=== PATIENT | female | born 1985 | race Caucasian/White ===

== ENCOUNTER 2018-05-28 15:18 | Emergency (ER) | payer OTHER, MEDICAID, SELFPAY ==
[2018-05-28 15:19] VITALS: BP 134/79; PULSE 75; RESP 16; TEMP 36.6; O2SAT 97; BMI 35.4
[2018-05-28] MEDS: 0.9% Normal Saline 1,000 ML 1000 ML IV (15:54)
--- NOTE | 2018-05-28 16:01 | ED.DCSUM_ITS ---
- ER Visit Summary Date of Service: 05/28/18 Chief Complaint: Abdominal pain History of Present Illness: The patient is a 32 F with no primary care physician. She reports that she has right-sided abdominal pain that began 2 days ago. These are intermittent episodes lasting hours at a time. She describes as a dull, crampy pain is 5-10 at worst and she is pain-free currently. Is worsened by laying down. Is relieved by sitting up. Reports that if she pushes in her right upper quadrant it seems to cause pain in her right flank. Patient reports that she was nauseated and vomited once yesterday. No blood or emesis. No diarrhea. Her last bowel movement was yesterday. Patient denies any history of fatty food intolerance. She does report that tomato sauces have bothered her in the past. She denies any spicy food intolerance. States that yesterday at approximately 7 or 8 PM she ate a bagel with butter and cinnamon. She has pain that began approximately 9 PM. The night before that she ate Nepalese food approximately 9 PM. Pain began at 10 or 11 PM. She reports that she ate the same Nep[place]e food yesterday for lunch and did not develop any pain. No dysuria or frequency. Her last months. It was partly 2 weeks ago. No vaginal bleeding or discharge. She has never had anything like this before. Physical Examination: Vitals: Stable. Afebrile. General: Well-nourished and well-developed. Head: Normocephalic atraumatic. Neck: Supple, no lymphadenopathy. No JVD. Nontender. Cardiovascular: Regular rate and rhythm. No murmurs. Respiratory: No respiratory distress. Clear to auscultation bilaterally. Abdominal: Soft, nontender, nondistended, normal bowel sounds. No guarding, rebound, or peritoneal signs. No Flores sign. Back: Nontender. Extremities: Nontender, no edema. Skin: Normal color, no rash. Neurologic: Alert and oriented ?3. Cranial nerves II through XII are intact. Normal strength and sensation. Psych: Normal affect. Test Results: CBC is normal. Chem-7 is more for creatinine 1.3. LFTs marked total protein 8.3 globulin 4.7. Lipase is normal. UA shows leukocytes, 510 white blood cells, and rare bacteria. test is negative. Emergency Department Course and Treatment: Patient is resting comfortably. She refused pain or nausea medications. Patient was treated with Macrobid p.o. Treatment Plan: Patient will be discharged on Macrobid and Zantac. Instructed to follow-up with Dr. Gordillo in 3-5 days for another exam. Return to emergency department for worsening symptoms. Disposition: To home in improved and stable condition. Impression: 1. Right upper quadrant abdominal pain, acute. 2. UTI. This note was generated with [employer] ([employer] dictation software. It may contain incorrect words, spelling, and punctuation that were not noted in review of the chart prior to signing ED Disposition - Plan for ED Patient: Chief Complaint: Abd Pain Instructions: ED UTI Cystitis Female, ED Abdominal Pain Gallstone Poss Prescriptions: Nitrofurantoin Macrocrystals [Macrobid] 100 mg PO Q12 #14 capsule Ranitidine [Zantac] 300 mg PO DAILY #30 tablet Referrals: Geovani Gunderson MD [STAFF PHYSICIAN] - Kim Goodrich MD [STAFF PHYSICIAN] - 3-5 Days if not improving
[2018-05-28 16:04] LABS: Mucous, Urine 0 SEEN /hpf (<or=2+)
[2018-05-28 16:08] LABS: Color, Urine Yellow (Yellow); Glucose, Dipstick Normal (Normal); Ketone-Dipstick Negative (Negative); Leukocyte Esterase-Dipstick 500 /ul (Negative); Nitrite-Dipstick Negative (Negative); Occult Blood-Urine Negative /ul (Negative); Protein-Dipstick 30 mg/dl (Negative); Specific Gravity, Urine 1.015 (1.002-1.030); Urine Bilirubin Dipstick Negative (Negative); Urine Clarity Clear (Clear); Urine Urobilinogen Normal (Normal)
[2018-05-28 16:14] LABS: Bacteria RARE /hpf (None Seen); Red Blood Cells-Urine 0-5 SEEN /hpf (0-5); Squamous Epithelial Cells - UA 0-5 SEEN /hpf (5-10); White Blood Cells 5-10 SEEN /hpf (0-5)
[2018-05-28 16:17] LABS: AST(SGOT) 18 U/L (15-37); Absolute Lymphocyte Count 2.48 X10^3/ul (0.83-4.51); Absolute Neutrophil Count 5.6 X10^3/uL (2.0-7.7); Alanine Aminotransfer ALT/SGPT 28 U/L (13-56); Albumin, Serum 3.6 g/dL (3.2-5.0); Alkaline Phosphatase 96 U/L (45-117); Anion Gap 6 (5-15); BUN 13 mg/dL (7-18); Basophil# 0.06 X10^3/uL; Basophil% 0.7 % (0-1); Bilirubin, Direct 0.09 mg/dL (0.00-0.30); Chloride 104 mmol/L (98-107); EST Glomerular Filtration Rate 51 mL/min (>60); Eosinophil# 0.22 X10^3/uL; Eosinophils% 2.4 % (0-5); Est Glom Filt Rate - Afr Amer 62 mL/min (>60); Estimated Creatinine Clearance 50.05 ml/min; Globulin 4.7 g/dL (2.2-4.2); Glucose 96 mg/dL (74-106); Hematocrit 44.3 % (37-47); Hemoglobin 14.4 g/dl (12.0-15.0); Lipase 146 U/L (73-393); Lymphocyte # 2.48 X10^3/ul (4.0); Lymphocyte % 27.2 % (19-41); Mean Corp Hgb Conc 32.5 g/gl (32-36); Mean Corpuscular Hgb 27.4 pg (27.0-32.0); Mean Corpuscular Volume 84.2 fL (81-99); Mean Platelet Vol. 9.8 fl (6.2-12.0); Monocyte# 0.72 X10^3/uL; Monocyte% 7.9 % (0-10); Neutrophil # 5.64 X10^3/uL (2.7-7.7); Neutrophil % 61.7 % (47-70); POSITIVE COUNT NO; POSITIVE DIFFERENTIAL NO; POSITIVE MORPHOLOGY NO; Platelet Count 366 K/mm3 (150-450); Potassium 3.9 mmol/L (3.5-5.1); Protein, Total 8.3 g/dL (6.4-8.2); RBC Distribution Width CV 13.8 % (11.6-14.6); RBC Distribution Width SD 42.7 fl (35.1-43.9); Red Blood Count 5.26 M/mm3 (4.2-5.4); Sodium Level 140 mmol/L (136-145); White Blood Count 9.1 K/mm3 (4.4-11.0)
[2018-05-28 16:19] LABS: Pregnancy, Serum, hCG Quali. NEGATIVE Negative (0-9 Nonpreg)
[2018-05-28] MEDS: Nitrofurantoin Macrocrystals 100 MG Capsule PO (16:39)
[2018-05-28 16:45] VITALS: BP 110/65; PULSE 62; RESP 14; O2SAT 98
--- NOTE | 2018-05-28 16:46 | ED.RN ---
PT GIVEN WRITTEN AND VERBAL DISCHARGE INSTRUCTIONS AND HOME GOING PRESCRIPTIONS. PT VERBALIZES UNDERSTANDING AND DENIES ANY FURTHER QUESTIONS. IV D/C AND COVERED WITH 2X2 GAUZE DRESSING AND PAPER TAPE. PT DRESSES SELF AND AMBULATES OUT OF DEPT WITH .
== END 2018-05-28 16:52 | disposition home or self-care (01) ==
PROVIDERS: Emergency Provider Emergency Medicine
DX: N39.0 Urinary tract infection, site not specified (principal); R10.11 Right upper quadrant pain
CPT/HCPCS: 80048; 80076; 81001; 83690; 84703; 85025; 96360; 99284; J7030; A4216

== ENCOUNTER 2022-02-21 13:51 | Inpatient (IN) | payer OTHER, MEDICAID, SELFPAY ==
[2022-02-21 13:51] VITALS: BP 134/91; PULSE 73; RESP 16; TEMP 36.4; O2SAT 100; BMI 35.6
--- NOTE | 2022-02-21 14:06 | EDS_ITS ---
HPI HPI - GI History of Present Illness Chief Complaint: Abd Pain Detail of Chief Complaint: Abdominal pain that started this morning Informant: patient Abdominal Pain/Flank Pain Current Severity: 7/10 Nausea/Vomiting/Emesis GI Symptom: Positive for Nausea and Vomiting Narrative Narrative: Patient presents with abdominal pain that started this morning. She describes it as right upper quadrant and at times radiating through to her back. Patient's had nausea and vomiting x5. She denies any blood in her stool or black tarry stool. She denies any diarrhea. She denies any fever. Patient last ate last evening. She denies any urinary symptoms. Her last menstrual period was about a month ago but she only gets one about every quarter because she is on the NuvaRing. No history of gallbladder problems. Prior similar symptoms: No PFSH PFSH Medical History no medical history Home Medications NK 02/21/22 [History Last Taken Unknown] Allergy/AdvReac Type Severity Reaction Status Date / Time pineapple Allergy Angioedema Verified 02/21/22 13:53 Sulfa (Sulfonamide Allergy Rash Verified 02/21/22 13:53 Antibiotics) Social History Smoking Status: Never smoker ROS ROS ED Constitutional Constitutional ED: Reports systems reviewed and no addt'l complaints, except as documented; Denies body ache(s), change in weight or chills Eyes Eyes: Denies acute decrease in peripheral vision, change in vision, double vision or loss of vision ENT ENT ED: Reports none; Denies ear pain, lip swelling, loss taste/smell, neck pain, otalgia or sore throat Cardiovascular Cardiovascular: Reports none; Denies abdominal pain, chest pain with activity, leg edema, lightheadedness, palpitations, rapid heart rate or syncope Respiratory/Chest Respiratory/Chest: Reports none; Denies change in mental status, dry cough, dyspnea, hemoptysis, shortness of breath at rest or shortness of breath with exertion Gastrointestinal Gastrointestinal: Reports none, abdominal pain, nausea and vomiting; Denies change in stool character, diarrhea, hematemesis, hematochezia, melena or rectal bleeding Genitourinary Genitourinary ED: Reports none; Denies abdominal discomfort, anuria, dysuria, genital pain or polyuria Musculoskeletal Musculoskeletal: Reports none; Denies arthralgias, back pain, difficulty walking, extremity pain, muscle weakness or myalgias Integumentary Reports none; Denies abscess or rash Neurologic Neurologic: Reports none; Denies abnormal gait, confusion, focal weakness, frequent falls, headache(s), loss of vision, numbness, paresthesias, radicular pain, vertigo or weakness Psychiatric Psychiatric: Reports systems reviewed and no addt'l complaints, except as documented and none; Denies behavioral changes, confusion, difficulty concentrating, hallucinations, suicidal ideation, tactile hallucinations or visual hallucinations Endocrine Endocrinology: Denies none, cold intolerance, excessive sweating, fatigue or heat intolerance Hematologic/Lymphatic Hematologic/Lymphatic: Reports none; Denies anemia, easy bleeding or easy bruising Allergic/Immunologic Allergic/Immunologic ED: Denies as per HPI, none, lip swelling, mouth swelling, throat swelling, tongue swelling or hives EXAM Physical Exam Const Vital Signs: 02/21/22 13:51 Temperature 97.6 F L Temperature Source Temporal Pulse Rate 73 Respiratory Rate 16 Blood Pressure 134/91 H Blood Pressure Mean 105 Pulse Ox 100 Oxygen Delivery Method Room Air Positive well nourished and well developed General Appearance ED: well developed and NAD HEENT Reports TM's clear and moist mucous membranes normocephalic and atraumatic; Negative for trauma or tenderness Tympanic Membrane ED: Yes TM's clear Eyes PERRL and EOMs intact bilaterally General Eye ED: Negative for pale conjunctiva or scleral icterus Neck no lymphadenopathy, supple and no JVD General: Negative for tenderness Chest Wall inspection of chest normal and palpation of chest normal Chest: Negative for tenderness Resp normal respiratory effort and clear to auscultation bilaterally Effort and Inspection: Negative for respiratory distress or pain with movement Auscultation: Negative for rhonchi, wheezes or diminished lung sounds Cardio regular rate, regular rhythm, S1 normal heart sound, S2 normal heart sound and no murmurs Peripheral Pulses: pulses 2+ throughout GI normal to inspection, nondistended, normoactive bowel sounds, soft to palpation, non-distended and no masses GI Narrative: Patient has tenderness palpation of the right upper quadrant with guarding. She had a positive Flores sign. No rebound, rigidity, or peritoneal signs. Palpation: tender Back/Spine no CVA tenderness and no thoracic nor lumbar tenderness Extremity normal to inspection General Extremety ED: Negative for edema General Extremity: Negative for edema Neuro oriented x3, CN's II-XII intact bilaterally, no sensory deficits noted and gait normal Sensorium / Orientation: awake, alert, oriented to person, oriented to place and oriented to time Motor Exam: strength 5/5 throughout and strength abnormal Psych mental status grossly normal Skin no rashes or lesions noted and no wounds MDM MDM MDM Narrative Medical decision making narrative: IV line established on arrival. Patient was medicated with Dilaudid and Zofran. She was started on normal saline. Patient had good pain relief with that. She does have an elevated white blood cell count however her LFTs and lactate are normal. CT scan of the abdomen pelvis showed gallstones and HIDA scan was recommended if concern for cholecystitis. Given location of patient's pain and the fact that she still having pain and has been vomiting and elevated white count was concerned about cholecystitis. I discussed case with Dr. Ojeda who will present to the emergency department to evaluate patient. Patient will be admitted by surgeon for cholecystectomy to be performed tomorrow. Lab Data Attestation: I reviewed the patient's lab results. Labs: Laboratory Results - last 24 hr 02/21/22 02/21/22 02/21/22 14:21 14:21 14:21 WBC 13.8 H RBC 5.11 Hgb 13.7 Hct 42.3 MCV 82.8 MCH 26.8 L MCHC 32.4 RDW Std Deviation 40.8 RDW Coeff of [place] 13.5 Plt Count 496 H MPV 9.1 Immature Gran % (Auto) 0.200 Neut % (Auto) 85.9 H Lymph % (Auto) 10.6 L [place] % (Auto) 2.5 Eos % (Auto) 0.1 Baso % (Auto) 0.7 Absolute Neuts (auto) 11.9 H Absolute Lymphs (auto) 1.46 Nucleated RBC % 0 Sodium 139 Potassium 4.4 Chloride 109 H Carbon Dioxide 25.0 Anion Gap 5 BUN 14 Creatinine 1.14 H Estim Creat Clear Calc 55.00 Est GFR (MDRD) Af Amer 70 Est GFR (MDRD) Non-Af 58 L BUN/Creatinine Ratio 12.3 Glucose 100 Lactic Acid 1.3 Calcium 9.4 Total Bilirubin 0.20 AST 7 L ALT 14 Alkaline Phosphatase 105 Total Protein 8.4 H Albumin 3.3 Globulin 5.1 H Albumin/Globulin Ratio 0.6 L Lipase 81 Serum , Qual Urine Color Urine Clarity Urine pH Ur Specific [place] Urine Protein Urine Glucose (UA) Urine Ketones Urine Occult Blood Urine Nitrite Urine Bilirubin Urine Urobilinogen Ur Leukocyte Esterase Urine RBC Urine WBC Ur Squamous Epith Cells Urine Bacteria Urine Mucus 02/21/22 02/21/22 14:21 14:31 WBC RBC Hgb Hct MCV MCH MCHC RDW Std Deviation RDW Coeff of [place] Plt Count MPV Immature Gran % (Auto) Neut % (Auto) Lymph % (Auto) [place] % (Auto) Eos % (Auto) Baso % (Auto) Absolute Neuts (auto) Absolute Lymphs (auto) Nucleated RBC % Sodium Potassium Chloride Carbon Dioxide Anion Gap BUN Creatinine Estim Creat Clear Calc Est GFR (MDRD) Af Amer Est GFR (MDRD) Non-Af BUN/Creatinine Ratio Glucose Lactic Acid Calcium Total Bilirubin AST ALT Alkaline Phosphatase Total Protein Albumin Globulin Albumin/Globulin Ratio Lipase Serum , Qual NEGATIVE Urine Color Yellow Urine Clarity Sl. Cloudy Urine pH 5.[address] [place] 1.020 Urine Protein 30 H Urine Glucose (UA) Normal Urine Ketones Negative Urine Occult Blood 25 H Urine Nitrite Negative Urine Bilirubin Negative Urine Urobilinogen Normal Ur Leukocyte Esterase 500 H Urine RBC 0 SEEN Urine WBC 25-50 SEEN Ur Squamous Epith Cells 0-5 SEEN Urine Bacteria 0 SEEN Urine Mucus 0 SEEN Radiography Diagnostic Testing: Clinical Impression(s) from Imaging Studies Abdomen/Pelvis CT 02/21/22 15:00 IMPRESSION: Stones in the gallbladder, including the neck. HIDA scan may be obtained if clinical suspicion for acute cholecystitis is high. A 0.2 cm nonobstructing stone in the right kidney. Diffuse hepatic steatosis. Normal appendix. Electronically Signed: Crispin Odell MD at 16:00 EDT , Discharge Plan Triage Chief Complaint: Abd Pain ED Provider: Ace Sandoval Dx/Rx/DC Orders Clinical Impression: Abdominal pain, Cholelithiasis, Biliary colic Primary Care Provider: Care Physician,No Primary Disposition Disposition: [facility]
[2022-02-21] MEDS: HYDROmorphone 1 MG/ML Syringe IV (14:21)
[2022-02-21] MEDS: Ondansetron 4 MG/2 ML Vial IV (14:21)
[2022-02-21] MEDS: 0.9% Normal Saline 1,000 ML 125 ML IV ×2 (14:21→18:02)
[2022-02-21 14:32] LABS: Absolute Lymphocyte Count 1.46 X10^3/uL (0.83-4.51); Absolute Neutrophil Count 11.9 X10^3/uL (2.0-7.7); Basophil# 0.09 X10^3/uL; Basophil% 0.7 % (0-1); Eosinophil# 0.01 X10^3/uL; Eosinophils% 0.1 % (0-5); Hematocrit 42.3 % (37-47); Hemoglobin 13.7 g/dL (12.0-15.0); Lymphocyte # 1.46 X10^3/ul (0.83-4.51); Lymphocyte % 10.6 % (19-41); Mean Corp Hgb Conc 32.4 g/dL (32-36); Mean Corpuscular Hgb 26.8 pg (27.0-32.0); Mean Corpuscular Volume 82.8 fL (81-99); Mean Platelet Vol. 9.1 fl (6.2-12.0); Monocyte# 0.35 X10^3/uL; Monocyte% 2.5 % (0-10); NRBC Flagged by Analyzer 0 % (0-5); Neutrophil # 11.88 X10^3/uL (2.7-7.7); Neutrophil % 85.9 % (47-70); Platelet Count 496 K/mm3 (150-450); RBC Distribution Width CV 13.5 % (11.6-14.6); RBC Distribution Width SD 40.8 fl (35.1-43.9); Red Blood Count 5.11 M/mm3 (4.2-5.4); White Blood Count 13.8 K/mm3 (4.4-11.0)
[2022-02-21 14:37] LABS: Bacteria 0 SEEN /hpf (None Seen); Color, Urine Yellow (Yellow); Glucose, Dipstick Normal (Normal); Ketone-Dipstick Negative (Negative); Leukocyte Esterase-Dipstick 500 /ul (Negative); Mucous, Urine 0 SEEN /hpf (<or=2+); Nitrite-Dipstick Negative (Negative); Occult Blood-Urine 25 /ul (Negative); Protein-Dipstick 30 mg/dl (Negative); Red Blood Cells-Urine 0 SEEN /hpf (0-5); Urine Bilirubin Dipstick Negative (Negative); Urine Clarity Sl. Cloudy (Clear); Urine Urobilinogen Normal (Normal)
[2022-02-21 14:42] LABS: White Blood Cells 25-50 SEEN /hpf (0-5)
[2022-02-21 14:43] LABS: Squamous Epithelial Cells - UA 0-5 SEEN /hpf (5-10)
[2022-02-21 14:48] LABS: ALB/GLOB Ratio 0.6 RATIO (0.9-2.4); AST(SGOT) 7 U/L (15-37); Alanine Aminotransfer ALT/SGPT 14 U/L (13-56); Albumin, Serum 3.3 g/dL (3.2-5.0); Alkaline Phosphatase 105 U/L (45-117); Anion Gap 5 (5-15); BUN 14 mg/dL (7-18); BUN/Creat Ratio 12.3 RATIO (10-20); Calcium,Total 9.4 mg/dL (8.5-10.1); Chloride 109 mmol/L (98-107); Creatinine, Serum 1.14 mg/dL (0.55-1.02); EST Glomerular Filtration Rate 58 mL/min (>60); Est Glom Filt Rate - Afr Amer 70 mL/min (>60); Globulin 5.1 g/dL (2.2-4.2); Glucose 100 mg/dL (74-106); Lipase 81 U/L (73-393); Potassium 4.4 mmol/L (3.5-5.1); Protein, Total 8.4 g/dL (6.4-8.2); Sodium Level 139 mmol/L (136-145)
--- NOTE | 2022-02-21 15:00 | CT_ITS ---
STUDY: CT ABDOMEN AND PELVIS WITHOUT CONTRAST REASON FOR EXAM: Female, 36 years old. abdominal pain RADIATION DOSAGE (If Supplied By Facility): CTDIvol = ( 16.08 ) mGy, DLP = ( 859.86 ) mGycm TECHNIQUE: Transaxial images were obtained from the dome of the diaphragm to the symphysis pubis without oral contrast, and without intravenous contrast. Sagittal and coronal images were reconstructed. Individualized dose optimization techniques were used for this CT. COMPARISON: None. FINDINGS: Lung bases clear. Diffuse fatty change of the liver. Unremarkable spleen, pancreas, vessels, and left kidney on this unenhanced study. A 0.2 cm nonobstructing stone in the right kidney. Multiple stones in the gallbladder, including 0.8 cm stones in the neck. Normal appendix. Bowel loops nonobstructed. No free air or free fluid. No adenopathy. No abdominal aortic aneurysm. The small fat-containing umbilical hernia. Sections through the pelvis demonstrate an incompletely distended urinary bladder. No adnexal mass. Posterior disc bulge at L5-S1. Multilevel thoracolumbar spondylosis. No acute osseous abnormality. CT/Abdomen/Pelvis without Cont IMPRESSION: Stones in the gallbladder, including the neck. HIDA scan may be obtained if clinical suspicion for acute cholecystitis is high. A 0.2 cm nonobstructing stone in the right kidney. Diffuse hepatic steatosis. Normal appendix. Electronically Signed: Crispin Odell MD at 16:00 EDT ,
[2022-02-21 15:06] LABS: Internal QC Validated? YES +Cl - CLEAR BKGD; Pregnancy, Serum, hCG Quali. NEGATIVE Negative
[2022-02-21 15:28] LABS: Lactic Acid 1.3 mmol/L (0.4-1.9)
[2022-02-21 16:31] VITALS: BP 142/72; PULSE 84; RESP 16; O2SAT 97
[2022-02-21 16:59] VITALS: BP 138/77; PULSE 71; RESP 16; TEMP 36; O2SAT 98
[2022-02-21 17:27] VITALS: BMI 35.6
[2022-02-21 17:33] VITALS: BP 128/89; PULSE 62; RESP 18; TEMP 36.7; O2SAT 100
--- NOTE | 2022-02-21 18:10 | PCM.HP.STD ---
HPI - General General Date of Admission: 02/21/22 HPI Narrative DEX PIÑA, is a 36 F who presents with right upper quadrant pain. Patient reports that she has been having right upper quadrant pain for over a year intermittently. She was told this was reflux and was started on a PPI. She reports today is more severe with nausea and vomiting. [facility] Medical History (Updated 02/21/22 @ 18:[address] Pedro Ojeda MD) Anxiety Depression Gestational [-induced] hypertension without significant proteinuria, complicating childbirth Medical History no medical history Home Medications etonogestrel-ethinyl estradiol [EluRyng] vag ring VAGINAL 02/21/22 [History Last Taken Unknown] Allergy/AdvReac Type Severity Reaction Status Date / Time pineapple Allergy Angioedema Verified 02/21/22 13:53 Sulfa (Sulfonamide Allergy Rash Verified 02/21/22 13:53 Antibiotics) Surgical History (Updated 02/21/22 @ 17:44 by Matilde Null) History of Social History Smoking Status: Never smoker ROS Constitutional Constitutional: Denies anorexia or fatigue Eyes Eyes: Denies blurry vision ENT HEENT: Denies abnormal hearing Cardiovascular Cardiovascular: Denies chest pain Respiratory/Chest Respiratory/Chest: Denies cough Gastrointestinal Gastrointestinal: Reports abdominal pain, nausea and vomiting; Denies diarrhea or dysphagia Genitourinary Genitourinary: Denies change in urinary stream Musculoskeletal Musculoskeletal: Denies abnormal gait or numbness Integumentary Integumentary: Denies jaundice Neurologic Neurologic: Denies abnormal gait Psychiatric Psychiatric: Denies depression Vital Signs Vital Signs Vital Signs: 02/21/22 13:51 02/21/22 16:31 02/21/22 16:59 Temperature 97.6 F L 96.8 F L Temperature Source Temporal Temporal Pulse Rate 73 84 71 Respiratory Rate 16 16 16 Blood Pressure 134/91 H 142/72 H 138/77 H Blood Pressure Mean 105 95 97 Blood Pressure Source Blood Pressure Position Blood Pressure Location Pulse Ox 100 97 98 Oxygen Delivery Method Room Air Room Air Room Air 02/21/22 17:33 Temperature 98.1 F Temperature Source Temporal Pulse Rate 62 Respiratory Rate 18 Blood Pressure 128/89 H Blood Pressure Mean 102 Blood Pressure Source Monitor Blood Pressure Position Semi-Fowlers Blood Pressure Location Left Arm Pulse Ox 100 Oxygen Delivery Method Room Air Weight Weight: 194 lb 11.2 oz Body Mass Index (BMI) 35.6 Physical Exam Const oriented x3 and no apparent distress Resp normal respiratory effort Cardio regular rate and regular rhythm GI soft to palpation Palpation: tender RUQ and Flores's sign Extremity normal to inspection Results Lab / Micro Data Result Diagrams: 02/21/22 14:21 02/21/22 14:21 Labs: Laboratory Results - last 24 hr 02/21/22 14:21: WBC 13.8 H, RBC 5.11, Hgb 13.7, Hct 42.3, MCV 82.8, MCH 26.8 L, MCHC 32.4, RDW Std Deviation 40.8, RDW Coeff of [place] 13.5, Plt Count 496 H, MPV 9.1, Immature Gran % (Auto) 0.200, Neut % (Auto) 85.9 H, Lymph % (Auto) 10.6 L, [place] % (Auto) 2.5, Eos % (Auto) 0.1, Baso % (Auto) 0.7, Absolute Neuts (auto) 11.9 H, Absolute Lymphs (auto) 1.46, Nucleated RBC % 0 02/21/22 14:21: Sodium 139, Potassium 4.4, Chloride 109 H, Carbon Dioxide 25.0, Anion Gap 5, BUN 14, Creatinine 1.14 H, Estim Creat Clear Calc 55.00, Est GFR (MDRD) Af Amer 70, Est GFR (MDRD) Non-Af 58 L, BUN/Creatinine Ratio 12.3, Glucose 100, Calcium 9.4, Total Bilirubin 0.20, AST 7 L, ALT 14, Alkaline Phosphatase 105, Total Protein 8.4 H, Albumin 3.3, Globulin 5.1 H, Albumin/Globulin Ratio 0.6 L, Lipase 81 02/21/22 14:21: Lactic Acid 1.3 02/21/22 14:21: Serum , Qual NEGATIVE 02/21/22 14:31: Urine Color Yellow, Urine Clarity Sl. Cloudy, Urine pH 5.0, Ur Specific [place] 1.020, Urine Protein 30 H, Urine Glucose (UA) Normal, Urine Ketones Negative, Urine Occult Blood 25 H, Urine Nitrite Negative, Urine Bilirubin Negative, Urine Urobilinogen Normal, Ur Leukocyte Esterase 500 H, Urine RBC 0 SEEN, Urine WBC 25-50 SEEN, Ur Squamous Epith Cells 0-5 SEEN, Urine Bacteria 0 SEEN, Urine Mucus 0 SEEN Micro: Microbiology 02/21/22 16:33 Nasal Secretion SARS-CoV-2 Antigen (Rapid) - Final Radiology Impression Abdomen/Pelvis CT 02/21/22 15:00 IMPRESSION: Stones in the gallbladder, including the neck. HIDA scan may be obtained if clinical suspicion for acute cholecystitis is high. A 0.2 cm nonobstructing stone in the right kidney. Diffuse hepatic steatosis. Normal appendix. Electronically Signed: Crispin Odell MD at 16:00 EDT , Assessment & Plan Assessment/Plan (1) Acute cholecystitis: PLAN: Patient has elevated white count with left shift and a CT scan shows multiple gallstones with a gallstone in the neck of the gallbladder. Patient likely has acute cholecystitis. I discussed this with her in detail. I discussed laparoscopic cholecystectomy with her. I discussed the risks including not limited to bleeding, infection, injury to organs around the gallbladder such as the bile duct, bowel, liver. Patient understands the risks and is when to proceed with laparoscopic cholecystectomy and this will be scheduled for tomorrow. For tonight I will keep her on clear liquids and n.p.o. after midnight and I will order a Covid screening test and I will start her on antibiotics. Pedro Ojeda MD Pager: [facility] [address] [place] [address], [address] [place] [address] Office:
[2022-02-21] MEDS: Morphine 2 MG/ML Syringe IV (18:22)
[2022-02-21] MEDS: 0.9% Saline Lock 10 ML Syringe IV ×2 (18:22→20:36)
[2022-02-21 20:35] VITALS: BP 109/58; PULSE 74; RESP 16; TEMP 36.7; O2SAT 98
[2022-02-21] MEDS: Acetaminophen 325 MG Tablet 650 MG PO (20:36)
[2022-02-22] VITALS (14 sets, daily range): BP systolic 102–132; BP diastolic 59–90; PULSE 62–88; RESP 16–18; TEMP 36.4–37.1; O2SAT 93–100; BMI 35.6
--- NOTE | 2022-02-22 | GALL_PTH ---
PATIENT: DEX PIÑA LOC: MS3 U#:[id number] AGE/SX: 36/F ROOM: MS313 RE02/21/[address]: Dr. Pedro Ojeda MD : 1985 BED: 1 DIS: 02/23/2022 SPEC #: [id number] RECD: 02/23/22 08:29 STATUS: [place] #: [id number] CAMILO: 02/22/22 00:[address]: Pedro Ojeda DEPT: SURGICAL PATHOLOGY RECD BY: Pete Cross ENTERED: 02/23/22 08:42 SP TYPE: JOMAR VILLEDA DR: No Primary Care Phys Tissues: Gallbladder, NOS Procedures: Surgery Specimen Level III HEADER OPERATION: Laparoscopic cholecystectomy with IOC PRE-OP DIAGNOSIS: Acute cholecystitis TISSUE SUBMITTED: Gallbladder MICROSCOPIC DIAGNOSIS Gallbladder, cholecystectomy: Acute and chronic cholecystitis, cholelithiasis and cholesterolosis. A pericystic lymph node with reactive changes. SJ:christelle 02/24/2022 MICROSCOPIC DESCRIPTION Slides are reviewed. GROSS DESCRIPTION Received is one container labeled with the patient's name and designated gallbladder. The specimen consists of a gallbladder measuring 8 cm in length and up to 4 cm in diameter. The external surface is pink-caballero, smooth and glistening for the most part. Focally it is granular, hemorrhagic and contains cautery artifact. The gallbladder contains thick, caballero-light yellow mucoid bile and multiple multifaceted greenish-yellow stones measuring in aggregate 5.5 x 4 x 2 cm and 0.5 to 1 cm in greatest dimension. The mucosa is bile-stained and without any mass lesions. The gallbladder wall measures up to 0.3 cm in thickness. Also, present close to cystic duct is a caballero ovoid nodule measuring 0.7 cm in greatest dimension, a possible lymph node. Software Intern sections from the gallbladder and the cystic duct are submitted in one cassette including entire possible lymph node, entirely submitted. / RADHA:christelle 02/23/2022 TC:3 CPT: 94798
[2022-02-22] MEDS: Ondansetron 4 MG/2 ML Vial IV ×2 (01:05→07:12)
[2022-02-22] MEDS: 0.9% Normal Saline 1,000 ML 125 ML IV ×2 (01:08→08:21)
--- NOTE | 2022-02-22 05:55 | EKG12_ITS ---
Test Reason : PRE-OP Blood Pressure : / mmHG Vent. Rate : 064 BPM Atrial Rate : 064 BPM P-R Int : 126 ms QRS Dur : 082 ms QT Int : 440 ms P-R-T Axes : 005 035 -10 degrees QTc Int : 453 ms Normal sinus rhythm Nonspecific T wave abnormality Confirmed by PHILLIP CARDENAS, NOBLE ([id number]), content editor LILIYA FIELD ([id number]) on 03/04/2022 1:36:34 PM Referred By: DR HUFF Confirmed By:NOBLE FISHER MD
[2022-02-22 06:07] LABS: Absolute Lymphocyte Count 2.76 X10^3/uL (0.83-4.51); Absolute Neutrophil Count 4.9 X10^3/uL (2.0-7.7); Basophil# 0.06 X10^3/uL; Basophil% 0.7 % (0-1); Eosinophil# 0.12 X10^3/uL; Eosinophils% 1.4 % (0-5); Hematocrit 36.3 % (37-47); Hemoglobin 11.4 g/dL (12.0-15.0); Lymphocyte # 2.76 X10^3/ul (0.83-4.51); Lymphocyte % 32.5 % (19-41); Mean Corp Hgb Conc 31.4 g/dL (32-36); Mean Corpuscular Hgb 26.1 pg (27.0-32.0); Mean Corpuscular Volume 83.3 fL (81-99); Mean Platelet Vol. 9.3 fl (6.2-12.0); Monocyte# 0.63 X10^3/uL; Monocyte% 7.4 % (0-10); NRBC Flagged by Analyzer 0 % (0-5); Neutrophil # 4.89 X10^3/uL (2.7-7.7); Neutrophil % 57.8 % (47-70); Platelet Count 422 K/mm3 (150-450); RBC Distribution Width CV 13.6 % (11.6-14.6); RBC Distribution Width SD 41.6 fl (35.1-43.9); Red Blood Count 4.36 M/mm3 (4.2-5.4); White Blood Count 8.5 K/mm3 (4.4-11.0)
--- NOTE | 2022-02-22 06:32 | RAD_ITS ---
CLINICAL HISTORY: Female, 36 years old. Abdominal pain PROCEDURE: CHOLANGIOGRAM - intraoperative FLUOROSCOPY TIME (if supplied): (0/.06) minutes/seconds TECHNIQUE: Single view from intraoperative fluoroscopy. FINDINGS: There is surgical instrumentation. There is contrast in intra and extra hepatic bile ducts and entering into the duodenum. RAD/Cholangiogram/ O R,Initial IMPRESSION: Intraoperative fluoroscopy. Electronically Signed: Christiano Elizalde MD at 20:40 EDT Reading Location ID and State: [facility] / [place] , Service support ,
[2022-02-22 06:39] LABS: ALB/GLOB Ratio 0.6 RATIO (0.9-2.4); AST(SGOT) 13 U/L (15-37); Alanine Aminotransfer ALT/SGPT 14 U/L (13-56); Albumin, Serum 2.4 g/dL (3.2-5.0); Alkaline Phosphatase 85 U/L (45-117); Anion Gap 5 (5-15); BUN 8 mg/dL (7-18); BUN/Creat Ratio 8.6 RATIO (10-20); Calcium,Total 7.9 mg/dL (8.5-10.1); Chloride 112 mmol/L (98-107); Creatinine, Serum 0.93 mg/dL (0.55-1.02); EST Glomerular Filtration Rate 73 mL/min (>60); Est Glom Filt Rate - Afr Amer 89 mL/min (>60); Estimated Creatinine Clearance 67.41 ml/min; Globulin 3.8 g/dL (2.2-4.2); Glucose 84 mg/dL (74-106); Potassium 3.5 mmol/L (3.5-5.1); Protein, Total 6.2 g/dL (6.4-8.2); Sodium Level 140 mmol/L (136-145)
[2022-02-22] MEDS: 0.9% Saline Lock 10 ML Syringe IV ×2 (07:13→19:55)
--- NOTE | 2022-02-22 10:45 | CASEMGMT ---
RN CM Face to Face with patient for initial transition planning/care coordination assessment. RN CM introduced self and role at [facility]. Patient lying in bed, alert and oriented, at bedside. Patient willing to participate in assessment and is able to answer all questions appropriately. Care providers, pharmacy, and demographics verified. Patient wishes to discharge home, denies need for home health at this time. Patient states she has no further needs or concerns at this time. CM to follow for discharge planning needs that may arise. 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 Insurance: [employer] Prescription Benefit: yes Living Will/HPOA: none LNOK: Living Arrangements: Patient lives with in a 2 story home with bed and bath on first floor. 4 steps and railing to enter the home. Patient states she is independent at home. Transportation: DME/HHC: Patient denies current DME or previous HHC. Disposition Plan: Patient to discharge home with family support and follow-up plans in place. Cortney BURNS, RN, CM
--- NOTE | 2022-02-22 14:20 | NURSING ---
Pt to OR via bed
[2022-02-22] MEDS: Lactated Ringers 1,000 ML 100 ML IV ×2 (15:00→18:14)
[2022-02-22] MEDS: Bupivacaine Mpf 0.5% 30 ML VIAL (15:52)
--- NOTE | 2022-02-22 16:19 | OP.PCM_ITS ---
Problems Associated Problem List Diagnoses (1) Acute cholecystitis: Report of Operation Date of Procedure: 02/22/22 Pre-Operative Diagnosis: Acute cholecystitis Post-Operative Diagnosis: Acute cholecystitis Surgery/Procedure Performed:: Laparoscopic cholecystectomy with cholangiogram Specimen's removed: Gallbladder Description of Procedure: After obtaining informed consent patient was brought back to the operating room. General anesthesia was induced. The abdomen was prepped and draped in usual sterile fashion. A small midline incision was made superior to the umbilicus and deepened to the level of fascia. The fascia was elevated and incised. Next the peritoneum was elevated and incised in the same fashion. Finger sweep was performed and the Amin trocar was placed into the abdomen. The balloon was inflated. The abdomen was inflated to 15 mmHg. Next a camera was introduced into the abdomen and the abdomen was inspected. Next under direct visualization three 5-mm ports were placed one subxiphoid and 2 subcostal. Next the gallbladder was elevated and retracted toward the right shoulder. The peritoneum was stripped from the gallbladder. The gallbladder was inflamed with edema. The infundibulum was located and retracted laterally. Next the triangle of Calot was dissected and the cystic duct and cystic artery were identified. Cholangiograms were performed. The Sanchez clamp was used to clamp across the infundibulum and the catheter needle was inserted into the gallbladder. Under fluoroscopy contrast was instilled into the gallbladder and the common duct, cystic duct as well as proximal hepatic ducts were identified. There was good filling of the duodenum. There were no filling defects noted in the common bile duct. The clamp was removed as well as the needle and the infundibulum was grasped once more. Three hemolock clips were placed across the cystic duct. The cystic duct was then divided leaving 2 clips on the stump. The cystic artery was clipped and divided in the same fashion. The hook cautery was then used to take the gallbladder off of the gallbladder bed. Hemostasis was obtained. Gallbladder fossa was irrigated and no active bleeding or bile leakage was noted. Next the camera was introduced in the subxiphoid port. An Endopouch bag was placed through the umbilical port and the gallbladder was placed into it. The gallbladder was then removed through the umbilical incision. The camera was then reinserted through the umbilical port. The gallbladder fossa was inspected once more and noted to be hemostatic with no leaking bile. The abdomen was suctioned dry. The 5 mm ports were removed under direct visualization. The umbilical port was then removed and the air was removed from the abdomen. Next using an 0 Vicryl suture the umbilical fascia was closed in a [id number] fashion. The umbilical port site was irrigated local anesthetic was administered to all the incisions. All the incisions were closed with interrupted subcuticular 4-0 Monocryl sutures followed by Steri- Strips and dressings. The patient was awoken and taken to PACU in stable condition. Admit VTE Documentation VTE Mechan Device Prophylaxis: SCD's
[2022-02-22] MEDS: Morphine 2 MG/ML Syringe IV (19:55)
[2022-02-22] MEDS: Acetaminophen 325 MG Tablet 650 MG PO (22:33)
[2022-02-23] MEDS: oxyCODONE 5 MG Tablet PO ×2 (00:59→11:29)
[2022-02-23] MEDS: Lactated Ringers 1,000 ML 100 ML IV (04:04)
[2022-02-23 04:05] VITALS: BP 106/63; PULSE 72; RESP 18; TEMP 36.8; O2SAT 98
[2022-02-23 09:02] VITALS: BP 117/58; PULSE 55; RESP 16; TEMP 36.8; O2SAT 98
--- NOTE | 2022-02-23 10:05 | DS.PCM_ITS ---
Providers Date of Admission: 02/22/22 Primary Care Physician: No Primary Care Phys Reason For Visit: ACUTE CHOLECYSTITIS Diagnosis Discharge Diagnosis (1) Acute cholecystitis: Status: Acute Code(s): K81.0 - Acute cholecystitis Medications at Discharge Home Medications etonogestrel-ethinyl estradiol [EluRyng] vag ring VAGINAL 02/21/22 acetaminophen [Tylenol] 650 mg PO Q4H PRN PRN #0 tab 02/23/22 oxycodone 5 - 10 mg PO Q4H PRN PRN 5 Days #30 tab 02/23/22 Hospital Course Operations cholecystecomy Summary of Care Provided Hospital Course: The patient came in with acute cholecystitis and was taken the following morning for laparoscopic cholecystectomy. After cholecystectomy the patient was admitted to the floor and started on clears and slowly advance. When she was tolerating diet she was discharged home Weight / BMI Weight Weight: 194 lb 10.691 oz Body Mass Index (BMI) 35.6 ABG / Lab / Microbiology Data Result Diagrams: 02/22/22 05:30 02/22/22 05:30 Microbiology: Microbiology 02/21/22 16:33 Nasal Secretion SARS-CoV-2 Antigen (Rapid) - Final Radiography Diagnostic Testing: Radiology Impression Cholangiogram 02/22/22 06:32 IMPRESSION: Intraoperative fluoroscopy. Electronically Signed: Christiano Elizalde MD at 20:40 EDT Reading Location ID and State: [address] [place] [address] , Service support , D/C Instructions Discharge Diet: Light diet - advance as tolerated Discharge Activity: May Not Drive (for 2-3 days or while taking narcotic pain medications.), May Shower and - (Do not drive, work heavy equipment or sign legal documents for 24 hours.) Lifting Restrictions: 20 lbs for 2 weeks Additional Activity Instructions: Pain medication may cause nausea. You should typically eat light foods as you take your pain medications. Pain medication may also cause constipation. If this is a problem for you, brittni harris discuss with your doctor. Call your doctor if your incision/area has: Continuous Slow Oozing, Sudden Increased Bleeding, Increased Pain/ Swelling, Increased Redness and Foul Smelling Discharge Call your doctor if you observe: Fever of 101 or Higher Suture Line Care: Avoid Pulling/Pushing and Avoid Pinching/Bending Remove Dressing in: 2 days Additional Dressing/Incision Instructions: Leave operative bandaids on for 2 days. When you remove dressing, leave Steri-Strips on until your follow-up appointment, or until the Steri-Strips fall off on their own. Please Follow Up With: Pedro Ojeda MD When: Please call to schedule 2 week follow up appointment. [phone] Meaningful Use Info Meaningful Use Diagnoses (Choose all that apply): None applicable Discharge Plan Admission Admit Date/Time: 02/22/22 16:21 Attending Provider: Pedro Ojeda Primary Care Provider: Care Physician,Neela Primary Discharge Orders/Prescriptions Prescriptions: New acetaminophen [Tylenol] 325 mg Tablet 650 mg PO Q4H PRN PRN (Reason: PAIN/FEVER) Qty: 0 RF: 0 oxycodone 5 mg Tablet 5 - 10 mg PO Q4H PRN PRN (Reason: Pain Score 4-10) 5 Days Qty: 30 RF: 0 Continued etonogestrel-ethinyl estradiol [EluRyng] 0.12-0.015 mg/24 hr ring VAGINAL RF: 0 Referrals / Follow Up: Care Physician,No Primary [Primary Care Provider] - Disposition Disposition (needs filled in before D/C Order can be placed): Home, Self Care
== END 2022-02-23 12:15 | disposition home or self-care (01) | DRG 419 ==
LOC: ED 16:04 → MS3 16:56
PROVIDERS: Admitting Provider Surgery; Emergency Provider Emergency Medicine; Visit Provider Surgery
PROC: 0FT44ZZ Resection of Gallbladder, Percutaneous Endoscopic Approach (ICD-10-PCS; CPT 47610; principal; 2022-02-22 15:00)
DX: K80.00 Calculus of gallbladder with acute cholecystitis without obstruction (principal); K21.9 Gastro-esophageal reflux disease without esophagitis
CPT/HCPCS: 36415; 74176; 74300; 76000; 80053; 81001; 83605; 83690; 84703; 85025; 87811; 88304; 93005; 99284; J7030; J7120; A4216; J2405

== ENCOUNTER 2022-06-20 15:00 | Emergency (ER) | payer OTHER, MEDICAID, SELFPAY ==
[2022-06-20 15:00] VITALS: BP 138/86; PULSE 95; RESP 16; TEMP 36.5; O2SAT 99; BMI 34.7
[2022-06-20 15:36] VITALS: BP 138/86; PULSE 91; RESP 18; TEMP 36.6; O2SAT 98; BMI 34.7
--- NOTE | 2022-06-20 15:39 | EDS_ITS ---
HPI History of Present Illness Chief Complaint: Back Informant: patient Onset/Context/Timing Onset: Month(s) Context: Gradual Onset Timing: Intermittent Quality: Sharp Current Severity: Mild Maximum Severity: Moderate Worsened by: improves with Movement, Bending and Lifting Relieved by: Sitting and Remaining Still Associated Symptoms Associated Symptoms: Numbness, Tingling and Radiation to Right Leg; Negative for Abdominal Pain, Dysuria, Unable to Ambulate, Unable to Transfer, Urinary Retention, Urinary Incontinence, Constipation or Fecal Incontinence Narrative Narrative: 36-year-old female history of anxiety depression. Prior cholecystectomy. No prior back surgery or history. For the last 5 months has had intermittent low back pain primarily along her right SI joint and down her leg. It comes and goes. Worse with standing, walking, bending or lifting. Better supine or seated. Denies any fever. No falls or trauma. Prior similar symptoms: Yes Recent Illness/Hospitalization: No PFSH PFSH Medical History Acute cholecystitis Anxiety Depression Gestational [-induced] hypertension without significant proteinuria, complicating childbirth Home Medications etonogestrel 0.12 mg-ethinyl estradiol 0.015 mg/24 hr vaginal ring (EluRyng) vag ring vaginal birthcontrol 02/21/22 [History Last Taken Unknown] acetaminophen 325 mg tablet (Tylenol) 650 mg PO Q4H PRN PRN PAIN/FEVER #0 tabs 02/23/22 [Rx Last Taken Unknown] prednisone 20 mg tablet 40 mg PO DAILY 10 days #20 tabs 06/20/22 [Rx Last Taken Unknown] Allergy/AdvReac Type Severity Reaction Status Date / Time pineapple Allergy Angioedema Verified 06/20/22 15:04 Sulfa (Sulfonamide Allergy Rash Verified 06/20/22 15:04 Antibiotics) Surgical History History of S/P laparoscopic cholecystectomy Social History Smoking Status: Never smoker ROS ROS ED ROS Narrative Denies recent illness. Review of Systems ROS Unobtainable: Denies due to encephalopathy Constitutional Constitutional ED: Denies chills Eyes Eyes: Denies blurry vision ENT ENT ED: Denies ear pain Cardiovascular Cardiovascular: Denies chest pain Respiratory/Chest Respiratory/Chest: Denies dyspnea Gastrointestinal Gastrointestinal: Denies abdominal pain Genitourinary Genitourinary ED: Denies dysuria Musculoskeletal Musculoskeletal: Reports back pain; Denies arthralgias Integumentary Denies abscess Neurologic Neurologic: Denies headache(s) Psychiatric Psychiatric: Denies anxiety Endocrine Endocrinology: Denies cold intolerance Hematologic/Lymphatic Hematologic/Lymphatic: Denies easy bleeding Allergic/Immunologic Allergic/Immunologic ED: Denies mouth swelling EXAM Physical Exam Narrative Exam Narrative: 36-year-old female no acute distress vital signs stable afebrile. H EENT exam unremarkable lungs are clear. Heart regular rhythm no murmur. Abdomen soft nontender. Moving all 4 extremities. 5-5 senior commissary agent strength. Dorsi plantarflexion intact. No cauda equina. Normal medial thigh sensation no saddle anesthesia. Straight leg raise positive on the right negative on the left. Back and spine nontender except the right SI joint. No focal motor deficits no sensory loss. Const Vital Signs: 06/20/22 15:00 Temperature 97.7 F L Temperature Source Temporal Pulse Rate 95 Respiratory Rate 16 Blood Pressure 138/86 H Blood Pressure Mean 103 Pulse Ox 99 Oxygen Delivery Method Room Air Positive well nourished, well developed and obese; Negative for cachectic, contractures or unkempt General Appearance ED: well developed; Negative for unkempt, cachectic, contractures or pallor Nutritional Appearance: obese; Negative for cachectic HEENT Reports moist mucous membranes Negative for trauma Eyes PERRL and EOMs intact bilaterally General Eye ED: Negative for pale conjunctiva Neck no lymphadenopathy, supple and no JVD General: Negative for tenderness Thyroid: Negative for other Resp normal respiratory effort and clear to auscultation bilaterally Effort and Inspection: Negative for pain with movement Auscultation: Negative for rales Percussion: Negative for other Cardio regular rate, regular rhythm, S1 normal heart sound, S2 normal heart sound and no murmurs GI normal to inspection, nondistended, normoactive bowel sounds, soft to palpation, non-tender, non-distended and no masses Inspection: Negative for abdominal distention Auscultation: Negative for hyperactive bowel sounds Palpation: Negative for tender or rebound tenderness present Back/Spine normal to inspection and no thoracic nor lumbar tenderness General Back: Negative for CVA tenderness Cervical Spine: Negative for cervical spine tenderness Thoracic Spine / Upper Back: Negative for paraspinal muscle tenderness Lumbar Spine / Lower Back: straight leg raise positive right Extremity normal to inspection and no clubbing, cyanosis or edema Neuro oriented x3 and no sensory deficits noted Sensorium / Orientation: alert; Negative for confused, lethargic or stuporous Motor Exam: strength 5/5 throughout; Negative for strength abnormal Psych mental status grossly normal Appearance: Negative for unkempt Attitude: No agitated Mood & Affect: Negative for depressed, sad or tearful Skin no rashes or lesions noted and no wounds General Skin Exam: Negative for jaundice or pallor Lesions: No lesion noted Rashes: No rashes noted Trauma: Negative for abrasion Wounds: Negative for wounds noted MDM MDM MDM Narrative Medical decision making narrative: 36-year-old female low back pain rating to right leg. This is either sciatica or degenerative disc disease. She was started on prednisone given first dose here and and 40 mg a day for 10 days. Limited Motrin and Tylenol for pain. She has been referred to Dr. Luis Antonio Groves of spine for further evaluation if not improving. She does not need any emergent imaging at this time. She has no motor or sensory loss. No signs of cauda equina. Discharge Plan Triage Chief Complaint: Back ED Provider: Terrance Spicer Dx/Rx/DC Orders Clinical Impression: Sciatica Instructions: ED Back Pain (Acute or Chronic), ED Sciatica Prescriptions: New prednisone 20 mg tablet 40 mg PO DAILY 10 Days Qty: 20 0RF No Action etonogestrel-ethinyl estradiol [EluRyng] 0.12-0.015 mg/24 hr ring VAGINAL Label Comments: INSERT ONE RING VAGINALLY AND LEAVE IN PLACE FOR 3 CONSECUTIVE WEEKS, THEN REMOVE FOR 1 WEEK. INSERT NEW RING 7 DAYS AFTER THE LAST WAS REMOVED acetaminophen [Tylenol] 325 mg Tablet 650 mg PO Q4H PRN PRN (Reason: PAIN/FEVER) Qty: 0 0RF Primary Care Provider: Care Physician,No Primary Referrals: Luis Antonio Groves DO [Med Staff - Active Staff] - 10-14 Days if not better Care Physician,No Primary [Primary Care Provider] - Activity Restrictions/Additional Instructions: Prednisone daily starting tomorrow to decrease the inflammation in your back. This is either sciatica or a lumbar disc. Follow-up with the business applications specialist I referred you to Dr. Luis Antonio Groves if not improving. If not improving they may need to get an MRI. Motrin and Tylenol for pain. Disposition Disposition: Home, Self Care
[2022-06-20] MEDS: predniSONE 20 MG Tablet 60 MG PO (15:41)
== END 2022-06-20 16:03 | disposition home or self-care (01) ==
PROVIDERS: Emergency Provider Emergency Medicine; Visit Provider Emergency Medicine
DX: M54.41 Lumbago with sciatica, right side (principal); Z87.19 Personal history of other diseases of the digestive system; Z90.49 Acquired absence of other specified parts of digestive tract; F41.9 Anxiety disorder, unspecified; F32.A Depression, unspecified; E66.9 Obesity, unspecified; Z68.34 Body mass index [BMI] 34.0-34.9, adult
CPT/HCPCS: 99283

== ENCOUNTER 2023-11-12 20:13 | Emergency (ER) | payer OTHER, MEDICAID, SELFPAY ==
[2023-11-12 20:14] VITALS: BP 148/81; PULSE 80; RESP 16; TEMP 36.3; O2SAT 100
[2023-11-12 20:34] VITALS: BMI 35.8
[2023-11-12] MEDS: Orphenadrine 100 MG Tablet PO (21:20)
[2023-11-12] MEDS: predniSONE 20 MG Tablet 60 MG PO (21:20)
[2023-11-12] MEDS: Naproxen 500 MG Tablet PO (21:20)
--- NOTE | 2023-11-12 22:48 | ED.VIS.BACK ---
HPI History of Present Illness Chief Complaint: Back Narrative Narrative: 38-year-old female presenting with right lower back pain. Onset was this morning. She woke up with it. She does not remember any trauma yesterday. Patient states he is some doing a lot of walking lately. She has a history of back problems in the past. She states that nothing really made this worse or better except for time. She was supposed to be seen in follow-up and have his equal therapy and chiropractics but by the time her insurance approved her she had felt better and she never did anything for this. Patient denies loss of bladder or bowel control. She denies saddle anesthesia/paresthesia. Patient feels otherwise healthy recently. No numbness or tingling in the legs. PFSH PFSH Medical History Acute cholecystitis Anxiety Depression Gestational [-induced] hypertension without significant proteinuria, complicating childbirth Home Medications etonogestrel 0.12 mg-ethinyl estradiol 0.015 mg/24 hr vaginal ring (EluRyng) vag ring vaginal birthcontrol 02/21/22 [History Last Taken Unknown] acetaminophen 325 mg tablet (Tylenol) 650 mg (2 x 325 mg) PO Q4H PRN PRN PAIN/FEVER #0 tabs 02/23/22 [Rx Last Taken Unknown] prednisone 20 mg tablet 40 mg (2 x 20 mg) PO DAILY 10 days #20 tabs 06/20/22 [Rx Last Taken Unknown] cyclobenzaprine 10 mg tablet 10 mg PO TID PRN Muscle Spasm #20 TABLETS 11/12/23 [Rx Last Taken Unknown] prednisone 10 mg tablet 40 mg (4 x 10 mg) PO DAILY 2 days #8 tabs 11/12/23 [Rx Last Taken Unknown] Allergy/AdvReac Type Severity Reaction Status Date / Time pineapple Allergy Angioedema Verified 11/12/23 20:15 Sulfa (Sulfonamide Allergy Rash Verified 11/12/23 20:15 Antibiotics) Surgical History History of S/P laparoscopic cholecystectomy Social History Smoking Status: Never smoker ROS ROS ED Constitutional Constitutional ED: Denies chills, fever(s) or sweats Eyes Eyes: Denies blurry vision or change in vision ENT ENT ED: Denies ear pain or sore throat Cardiovascular Cardiovascular: Denies chest pain, palpitations or racing heartbeat Respiratory/Chest Respiratory/Chest: Denies cough, dyspnea or sputum Gastrointestinal Gastrointestinal: Denies abdominal pain, constipation, diarrhea, nausea or vomiting Genitourinary Genitourinary ED: Denies dysuria, hematuria or urinary frequency Musculoskeletal Musculoskeletal: Reports back pain; Denies arthralgias, myalgias or neck pain Integumentary Denies abscess, Abrasions or rash Neurologic Neurologic: Denies headache(s), paresthesias or weakness Psychiatric Psychiatric: Denies anxiety, depression, suicidal ideation or suicidal thoughts Endocrine Endocrinology: Denies polydipsia or polyuria EXAM Physical Exam Const Vital Signs: 11/12/23 20:14 Temperature 97.4 F L Temperature Source Temporal Pulse Rate 80 Respiratory Rate 16 Blood Pressure 148/81 H Blood Pressure Mean 103 Pulse Ox 100 Oxygen Delivery Method Room Air Positive well nourished General Appearance ED: NAD HEENT Reports moist mucous membranes Eyes PERRL and EOMs intact bilaterally Resp normal respiratory effort Cardio regular rate and regular rhythm Back/Spine Back/Spine Narrative: Tenderness to palpation right lumbar paraspinal musculature. No midline spinal tenderness, deformity, step-off. Extremity normal to inspection Neuro oriented x3 and no sensory deficits noted Sensorium / Orientation: alert Motor Exam: strength 5/5 throughout Psych mental status grossly normal Skin no rashes or lesions noted and no wounds MDM MDM MDM Narrative Medical decision making narrative: Patient presenting with right lower back pain. This is nontraumatic. No evidence of cauda equina syndrome or suspicion for infectious etiology. Patient medicated with Naprosyn and Norflex. She feels better on reevaluation. She did not want any IM shots. She was given 60 mg of prednisone here and 2-day supply of prednisone as an outpatient. She is counseled on stretching exercises, medications and alternating them as well as follow-up with her PCP. Impression: 1. Lumbar strain Discharge Plan Triage Chief Complaint: Back ED Provider: Daniel Lee Dx/Rx/DC Orders Instructions: Back Exercises: Lower Back Stretch, ED Back Spasm, No Trauma Prescriptions: New cyclobenzaprine 10 mg tablet 10 mg PO TID PRN (Reason: Muscle Spasm) Qty: 20 0RF prednisone 10 mg tablet 40 mg PO DAILY 2 Days Qty: 8 0RF No Action etonogestrel-ethinyl estradiol [EluRyng] 0.12-0.015 mg/24 hr ring VAGINAL Patient Comments: INSERT ONE RING VAGINALLY AND LEAVE IN PLACE FOR 3 CONSECUTIVE WEEKS, THEN REMOVE FOR 1 WEEK. INSERT NEW RING 7 DAYS AFTER THE LAST WAS REMOVED acetaminophen [Tylenol] 325 mg Tablet 650 mg PO Q4H PRN PRN (Reason: PAIN/FEVER) Qty: 0 0RF prednisone 20 mg tablet 40 mg PO DAILY 10 Days Qty: 20 0RF Primary Care Provider: Care Physician,No Primary Referrals: Care Physician,No Primary [Primary Care Provider] - Disposition Disposition: Home, Self Care
[2023-11-12 22:54] VITALS: PULSE 77; RESP 16; O2SAT 99
== END 2023-11-12 22:55 | disposition home or self-care (01) ==
LOC: ED 21:46
PROVIDERS: Emergency Provider Student in an Organized Health Care Education/Training Program; Visit Provider Student in an Organized Health Care Education/Training Program
DX: S39.012A Strain of muscle, fascia and tendon of lower back, initial encounter (principal); X58.XXXA Exposure to other specified factors, initial encounter
CPT/HCPCS: 99283